=== PATIENT | female | born 1975 | race Caucasian/White ===

== ENCOUNTER 2019-04-28 16:25 | Emergency (ER) | payer SELFPAY ==
[2019-04-28 16:42] VITALS: Wt 79.1 kg
[2019-04-28 18:58] LABS: BILIRUBIN NEGATIVE (NEGATIVE); GLUCOSE NEGATIVE (NEGATIVE); KETONE NEGATIVE (NEGATIVE); NITRITE NEGATIVE (NEGATIVE); UROBILINOGEN NORMAL (NORMAL)
[2019-04-28 19:00] LABS: WHITE CELLS - URINE 0-5 /hpf (NEGATIVE)
[2019-04-28 19:01] LABS: BACTERIA FEW /hpf (NEGATIVE); EPITHELIAL CELLS 0-5 /hpf (0-5)
[2019-04-28 19:02] LABS: HCG URINE NEGATIVE (NEGATIVE)
[2019-04-28 19:21] VITALS: BP 125/89
== END 2019-04-28 19:21 | disposition home or self-care (01) ==
LOC: D.ER 16:25
PROVIDERS: Family Medicine
DX: Z71.1 Person with feared health complaint in whom no diagnosis is made (principal)

== ENCOUNTER 2019-06-17 14:47 | Emergency (ER) | payer MEDICAID ==
[~2019-06-17] VITALS: Ht 162.6 cm; Wt 81.8 kg
[2019-06-17 15:08] VITALS: BP 147/81; Ht 162.6 cm; Wt 81.8 kg
== END 2019-06-17 16:41 | disposition left against medical advice (07) ==
LOC: D.ER 14:47
DX: R10.9 Unspecified abdominal pain (principal); K62.89 Other specified diseases of anus and rectum; Y09 Assault by unspecified means; Z53.29 Procedure and treatment not carried out because of patient's decision for other reasons